=== PATIENT | male | born 1945 | race Caucasian/White ===

== ENCOUNTER → 2018-01-04 | Outpatient (CLI) | payer MEDICARE ==
[~2018-01-04] MED LIST: ASPI-891 PO; ATOR20TA65 PO; CETI-101 PO; DOXY100T2 PO; IPRA42SP NS; LISI-613 PO; [UNRECOGNIZED DRUG - OTHER] NASAL
== END | disposition home or self-care (01) ==
LOC: SHCH 13:10 → EDSTATUS 13:30
PROVIDERS: ATTEND Internal Medicine Cardiovascular Disease
DX: I42.9 Cardiomyopathy, unspecified (principal); I35.0 Nonrheumatic aortic (valve) stenosis; R00.2 Palpitations; Z95.0 Presence of cardiac pacemaker
CPT/HCPCS: 93306

== ENCOUNTER 2018-01-11 09:03 | Day surgery (SDC) | payer MEDICARE ==
[2018-01-09 10:32] VITALS: BP 127/76
[2018-01-09 10:36] LABS: BASOPHILS % (AUTO) 0.9 % (0.0-5.0); EOSINOPHILS % (AUTO) 3.3 % (0.0-8.0); HEMATOCRIT 45.6 % (42-54); LYMPHOCYTES % (AUTO) 31.3 % (21.0-51.0); MEAN CORPUSCULAR HEMOGLOBIN 35.1 pg (27.0-33.0); MEAN CORPUSCULAR HGB CONC 34.6 g/dL (32.0-36.0); MEAN CORPUSCULAR VOLUME 101.4 fL (79-99); MONOCYTES % (AUTO) 14.2 % (3.0-13.0); NEUTROPHILS % (AUTO) 50.3 % (40.0-77.0); NUCLEATED RED BLOOD CELLS 0.1 % (0.0-0.19); PLATELET COUNT (AUTO) 206 K/uL (130-400); RED CELL DISTRIBUTION WIDTH 13.5 % (11.0-15.5); WHITE BLOOD COUNT (AUTO) 5.2 K/uL (4.8-10.8)
[2018-01-09 10:50] LABS: CREATININE 1.4 mg/dL (0.5-1.5); POTASSIUM 5.4 mmol/L (3.5-5.1)
[2018-01-09 10:53] LABS: PARTIAL THROMBOPLASTIN TIME 25.6 SEC (26.3-35.5)
[2018-01-09 11:36] LABS: INR 0.98 (0.85-1.15); PROTHROMBIN TIME 10.3 SEC (9.6-11.6)
[2018-01-11] VITALS (10 sets, daily range): BP systolic 106–137; BP diastolic 63–85
[~2018-01-11] VITALS: Ht 172.7 cm; Wt 73.0 kg
[~2018-01-11 09:03] MED LIST changes: +BUPIVACAINE/PF 0.25% 30ML VIAL IJ ONE; +CEFAZOLIN 1GM / D5W 50ML 150 ML ONE; -DOXY100T2 PO; +LIDOCAINE HCL 1% MDV 50ML VIAL ONE; +SODIUM CHLORIDE 0.9% 1000ML 1,000 ML IV SCH; -[UNRECOGNIZED DRUG - OTHER] NASAL
[2018-01-11 09:28] LABS: CREATININE 1.4 mg/dL (0.5-1.5); POTASSIUM 4.7 mmol/L (3.5-5.1)
[2018-01-11] MEDS ORDERED: VANCOMYCIN 1GM+NS 250ML 500 ML IV ONE (09:41)
[2018-01-11] MEDS ORDERED: MEPERIDINE-PF 25 MG/ML SYG ONE ×3 (09:49→10:31)
[2018-01-11] MEDS ORDERED: MIDAZOLAM HCL 1 MG/ML 2ML VIAL ONE ×3 (09:49→10:31)
[2018-01-11] MEDS ORDERED: OCTYL 2-CYANOACRYLATE 1 EACH TP ONE (10:41)
[2018-01-11] MEDS ORDERED: DOXY100T2 PO (10:58)
[2018-01-11] MEDS ORDERED: ONDANSETRON HCL 4 MG/2 ML VIAL IV PRN (11:00)
[2018-01-11] MEDS ORDERED: ACETAMINOPHEN-CODEINE 300/30MG TAB PO PRN ×2 (11:00)
== END 2018-01-11 15:10 | disposition home or self-care (01) ==
LOC: DAH 09:03
PROVIDERS: ATTEND Internal Medicine Cardiovascular Disease
DX: I44.2 Atrioventricular block, complete (principal); Z95.0 Presence of cardiac pacemaker; Z98.890 Other specified postprocedural states; Z88.0 Allergy status to penicillin; Z68.24 Body mass index [BMI] 24.0-24.9, adult; M19.90 Unspecified osteoarthritis, unspecified site; I10 Essential (primary) hypertension; E78.5 Hyperlipidemia, unspecified; I49.5 Sick sinus syndrome; Z95.2 Presence of prosthetic heart valve; R00.1 Bradycardia, unspecified
CPT/HCPCS: 33228; 36415 ×2; 80048 ×2; 85025; 85610; 85730; 93005; A4606; C1785; J0690; J2175 ×3; J2250 ×3; J3370; J3490 ×2; 99152; 99153

== ENCOUNTER → 2018-03-08 | Outpatient (CLI) | payer MEDICARE ==
[~2018-03-08] MED LIST changes: -BUPIVACAINE/PF 0.25% 30ML VIAL IJ ONE; -CEFAZOLIN 1GM / D5W 50ML 150 ML ONE; +DOXY100T2 PO; -LIDOCAINE HCL 1% MDV 50ML VIAL ONE; -SODIUM CHLORIDE 0.9% 1000ML 1,000 ML IV SCH
== END | disposition home or self-care (01) ==
LOC: OIH 15:30
PROVIDERS: ATTEND Family Medicine
DX: M25.552 Pain in left hip (principal)
CPT/HCPCS: 73502

== ENCOUNTER → 2018-03-17 | Outpatient (CLI) | payer MEDICARE | END | disposition home or self-care (01) | LOC: OIH 12:38 | PROVIDERS: ATTEND Family Medicine | DX: M51.36 Other intervertebral disc degeneration, lumbar region (principal); M48.061 Spinal stenosis, lumbar region without neurogenic claudication; M25.78 Osteophyte, vertebrae | CPT/HCPCS: 72100 ==

== ENCOUNTER → 2020-04-23 | Outpatient (CLI) | payer MEDICARE ==
[~2020-04-23] MED LIST changes: -CETI-101 PO; +CETI-109 PO
== END | disposition home or self-care (01) ==
LOC: SHCH 13:52
PROVIDERS: ATTEND Internal Medicine Cardiovascular Disease
DX: I10 Essential (primary) hypertension (principal); R09.89 Other specified symptoms and signs involving the circulatory and respiratory systems
CPT/HCPCS: 93306; 93880

== ENCOUNTER → 2020-10-29 | Outpatient (CLI) | payer MEDICARE ==
[~2020-10-29] MED LIST changes: -CETI-109 PO; +CETI-89 PO; -LISI-613 PO; +LISI20TA24 PO
== END | disposition home or self-care (01) ==
LOC: SHCH 15:40
PROVIDERS: ATTEND Internal Medicine Cardiovascular Disease
DX: I08.0 Rheumatic disorders of both mitral and aortic valves (principal)
CPT/HCPCS: 93306; 93356

== ENCOUNTER 2020-12-08 08:32 | Day surgery (SDC) | payer MEDICARE ==
[2020-12-04 11:29] LABS: HEMATOCRIT 48.3 % (42-54); LYMPHOCYTES % (AUTO) 26.6 % (21.0-51.0); MEAN CORPUSCULAR HEMOGLOBIN 32.7 pg (27.0-33.0); MEAN CORPUSCULAR HGB CONC 33.5 g/dL (32.0-36.0); MEAN CORPUSCULAR VOLUME 97.6 fL (79-99); NEUTROPHILS % (AUTO) 54.9 % (40.0-77.0); PLATELET COUNT (AUTO) 223 K/uL (130-400); RED BLOOD CELL COUNT(AUTO) 4.95 MIL/uL (4.50-6.20); RED CELL DISTRIBUTION WIDTH 12.3 % (11.0-15.5); WHITE BLOOD COUNT (AUTO) 5.9 K/uL (4.8-10.8)
[2020-12-04 11:41] LABS: CREATININE 1.2 mg/dL (0.5-1.5); POTASSIUM 4.5 mmol/L (3.5-5.1)
[2020-12-04 11:45] LABS: INR 1.05 (0.85-1.15); PROTHROMBIN TIME 11.4 SEC (9.6-11.6)
[2020-12-04 11:46] LABS: PARTIAL THROMBOPLASTIN TIME 27.4 SEC (26.3-35.5)
[2020-12-05 12:01] VITALS: BP 149/100
[2020-12-08] VITALS (10 sets, daily range): BP systolic 107–146; BP diastolic 61–84
[~2020-12-08] VITALS: Ht 170.2 cm; Wt 73.5 kg
[~2020-12-08 08:32] MED LIST changes: +AMLO-257 PO; -CETI-89 PO; -DOXY100T2 PO; -IPRA42SP NS; -LISI20TA24 PO; +MULT-1203 PO; +PHARMACY COMMUNICATION MISC SCH; +SODIUM CHLORIDE 0.9% 1000ML 1,000 ML IV SCH
[2020-12-08] MEDS ORDERED: IODIXANOL 320 MG/ML 100 ML VIAL ONE (10:03)
[2020-12-08] MEDS ORDERED: BUPIVACAINE/PF 0.25% 30ML VIAL IJ ONE (10:03)
[2020-12-08] MEDS ORDERED: MIDAZOLAM HCL 1 MG/ML 2ML VIAL ONE ×3 (10:03→11:15)
[2020-12-08] MEDS ORDERED: MEPERIDINE-PF 25 MG/ML SYG ONE ×3 (10:03→11:15)
[2020-12-08] MEDS ORDERED: VANCOMYCIN 1GM+NS 250ML 500 ML IV ONE (10:04)
[2020-12-08] MEDS ORDERED: LIDOCAINE HCL 1% MDV 50ML VIAL ONE (10:04)
[2020-12-08] MEDS ORDERED: ACETAMINOPHEN-CODEINE 300/30MG TAB PO PRN ×2 (12:00)
[2020-12-08] MEDS ORDERED: ONDANSETRON HCL 4 MG/2 ML VIAL IV PRN (12:00)
== END 2020-12-08 18:05 | disposition home or self-care (01) ==
LOC: DAH 08:32
PROVIDERS: ATTEND Internal Medicine Cardiovascular Disease
DX: I42.0 Dilated cardiomyopathy (principal); I44.30 Unspecified atrioventricular block; E78.5 Hyperlipidemia, unspecified; Z79.01 Long term (current) use of anticoagulants; Z88.0 Allergy status to penicillin; Z95.2 Presence of prosthetic heart valve; Z95.0 Presence of cardiac pacemaker; Z72.89 Other problems related to lifestyle; Z79.82 Long term (current) use of aspirin; Z79.899 Other long term (current) drug therapy; Z98.890 Other specified postprocedural states
CPT/HCPCS: 33225; 33229; 36415; 71045; 80048; 85025; 85610; 85730; 93005; A4215; A4216; A4221; A4222; A4223 ×3; A4606; A4663; C1769 ×2; C1894; C1900; C2621; J2175 ×3; J2250 ×3; J3370; J3490 ×2; J7030; Q9967; 99156; 99157

== ENCOUNTER → 2021-12-07 | Outpatient (CLI) | payer MEDICARE ==
[~2021-12-07] MED LIST changes: -PHARMACY COMMUNICATION MISC SCH; -SODIUM CHLORIDE 0.9% 1000ML 1,000 ML IV SCH
== END | disposition home or self-care (01) ==
LOC: SHCH 15:41
PROVIDERS: ATTEND Internal Medicine Cardiovascular Disease
DX: I35.2 Nonrheumatic aortic (valve) stenosis with insufficiency (principal); I51.7 Cardiomegaly; E78.5 Hyperlipidemia, unspecified; Z95.2 Presence of prosthetic heart valve
CPT/HCPCS: 93306

== ENCOUNTER 2021-12-30 08:25 | Day surgery (SDC) | payer MEDICARE ==
[2021-12-29 14:14] LABS: BASOPHILS % (AUTO) 0.6 % (0.0-5.0); EOSINOPHILS % (AUTO) 2.2 % (0.0-8.0); HEMATOCRIT 46.7 % (42-54); LYMPHOCYTES % (AUTO) 27.8 % (21.0-51.0); MEAN CORPUSCULAR HEMOGLOBIN 33.2 pg (27.0-33.0); MEAN CORPUSCULAR VOLUME 100.6 fL (79-99); MONOCYTES % (AUTO) 11.9 % (3.0-13.0); NEUTROPHILS % (AUTO) 57.1 % (40.0-77.0); PLATELET COUNT (AUTO) 183 K/uL (130-400); RED BLOOD CELL COUNT(AUTO) 4.64 MIL/uL (4.50-6.20); RED CELL DISTRIBUTION WIDTH 12.9 % (11.0-15.5); WHITE BLOOD COUNT (AUTO) 6.7 K/uL (4.8-10.8)
[2021-12-29 14:18] LABS: APPEARANCE,URINE Clear (CLEAR); BILIRUBIN,URINE Negative (NEGATIVE); COLOR,URINE Dark Yellow (YELLOW); GLUCOSE, URINE (UA) Negative (NEGATIVE); KETONES,URINE 15 mg/dL (NEGATIVE); LEUKOCYTE ESTERASE ,URINE Trace (NEGATIVE); NITRATE,URINE Negative (NEGATIVE); OCCULT BLOOD,URINE Small (NEGATIVE); PH,URINE 5.5 (5.0-8.0); PROTEIN,URINE POS 1+ mg/dL (NEGATIVE); UROBILINOGEN,URINE 0.2 mg/dL (0.2-1.0)
[2021-12-29 14:28] LABS: PROTHROMBIN TIME 10.9 SEC (9.6-11.6)
[2021-12-29 14:30] LABS: PARTIAL THROMBOPLASTIN TIME 26.6 SEC (26.3-35.5)
[2021-12-29 14:44] LABS: CREATININE 1.2 mg/dL (0.5-1.5); POTASSIUM 4.6 mmol/L (3.5-5.1)
[2021-12-29 14:46] LABS: BACTERIA,URINE Rare /HPF (None Seen); MUCUS,URINE Few LPF (None Seen); SQUAMOUS EPITHELIAL CELL,UR Rare /HPF (0-2); WBC,URINE 0-1 /HPF (0-1)
[2021-12-29 14:48] LABS: B-TYPE NATRIURETIC PEPTIDE 100 pg/mL (0-100)
[2021-12-29 15:29] VITALS: BP 167/90
[2021-12-30] VITALS (10 sets, daily range): BP systolic 106–148; BP diastolic 64–89
[~2021-12-30] VITALS: Ht 170.2 cm; Wt 72.8 kg
[~2021-12-30 08:25] MED LIST changes: +0.9% NACL 500ML IV.SOLN 500 ML IV SCH; +0.9%NACL 1000ML 1,000 ML IV ONE; +ATOR10 PO; -ATOR20TA65 PO; +CETI10TA57 PO; +IPRA3S NASAL; -MULT-1203 PO; +MULT-1367 PO
[2021-12-30] MEDS ORDERED: HEPARIN 10,000 UNIT/10ML (1,000 UNIT/ML) VIAL ONE (12:30)
[2021-12-30] MEDS ORDERED: MEPERIDINE-PF 25 MG/ML SYG ONE ×3 (12:30→14:12)
[2021-12-30] MEDS ORDERED: BIVALIRUDIN 250 MG/VIAL IV ONE (12:30)
[2021-12-30] MEDS ORDERED: MIDAZOLAM HCL 1 MG/ML 2ML VIAL ONE ×3 (12:30→14:11)
[2021-12-30] MEDS ORDERED: NITROGLYCERIN 50MG VIAL ONE (12:30)
[2021-12-30] MEDS ORDERED: IOHEXOL-350 50ML VIAL IV ONE (12:31)
[2021-12-30] MEDS ORDERED: IOHEXOL 350 MG/ML 100ML INFUS..BTL IV ONE (12:31)
[2021-12-30] MEDS ORDERED: LIDOCAINE HCL 400MG/20ML VIAL ONE (12:31)
[2021-12-30] MEDS ORDERED: 0.9%NACL 1000ML 1,000 ML IV SCH (15:30)
== END 2021-12-30 19:00 | disposition home or self-care (01) ==
LOC: DAH 08:25
PROVIDERS: ATTEND Internal Medicine Cardiovascular Disease
DX: I35.0 Nonrheumatic aortic (valve) stenosis (principal); I25.10 Atherosclerotic heart disease of native coronary artery without angina pectoris; I44.2 Atrioventricular block, complete; I50.32 Chronic diastolic (congestive) heart failure; Z95.3 Presence of xenogenic heart valve; Z79.899 Other long term (current) drug therapy; Z79.01 Long term (current) use of anticoagulants; Z79.82 Long term (current) use of aspirin; Z98.890 Other specified postprocedural states; Z88.0 Allergy status to penicillin
CPT/HCPCS: 36415; 71045; 80048; 81001; 83880; 85025; 85610; 85730; 93005; 93460; 93567; A4215; A4216; A4221; A4222; A4223 ×3; A4606; A4663; C1760 ×2; C1769 ×5; C1887 ×2; C1893; C1894 ×2; J1644 ×3; J2175 ×3; J2250 ×3; J3490 ×2; J7030; Q9965; Q9967 ×2; 99156; 99157; J0583

== ENCOUNTER → 2022-01-14 | Outpatient (CLI) | payer MEDICARE ==
[~2022-01-14] MED LIST changes: -0.9% NACL 500ML IV.SOLN 500 ML IV SCH; -0.9%NACL 1000ML 1,000 ML IV ONE
[2022-01-14 12:27] LABS: CREATININE 1.3 mg/dL (0.5-1.5); POTASSIUM 4.1 mmol/L (3.5-5.1)
== END | disposition home or self-care (01) ==
LOC: LAB 11:02
PROVIDERS: ATTEND Physician Assistant
DX: I10 Essential (primary) hypertension (principal)
CPT/HCPCS: 36415; 80048

== ENCOUNTER → 2022-02-05 | Outpatient (CLI) | payer MEDICARE ==
[~2022-02-05] MED LIST changes: +IOHEXOL 350 MG/ML 100ML INFUS..BTL IV ONE; +METOPROLOL TARTRATE 1 MG/ML 5ML VIAL IV ONE
== END | disposition home or self-care (01) ==
LOC: RAH 02-02 10:44
PROVIDERS: ATTEND Internal Medicine Cardiovascular Disease
DX: I35.0 Nonrheumatic aortic (valve) stenosis (principal); I51.7 Cardiomegaly; I25.10 Atherosclerotic heart disease of native coronary artery without angina pectoris; I70.8 Atherosclerosis of other arteries; K44.9 Diaphragmatic hernia without obstruction or gangrene; N28.1 Cyst of kidney, acquired; K31.89 Other diseases of stomach and duodenum; K57.90 Diverticulosis of intestine, part unspecified, without perforation or abscess without bleeding; M47.815 Spondylosis without myelopathy or radiculopathy, thoracolumbar region; Z95.0 Presence of cardiac pacemaker
CPT/HCPCS: 74174; 75574; J3490; Q9967

== ENCOUNTER → 2022-06-01 | Outpatient (CLI) | payer MEDICARE ==
[~2022-06-01] MED LIST changes: -IOHEXOL 350 MG/ML 100ML INFUS..BTL IV ONE; -METOPROLOL TARTRATE 1 MG/ML 5ML VIAL IV ONE
== END | disposition home or self-care (01) ==
LOC: OIH 09:49
PROVIDERS: ATTEND Internal Medicine Cardiovascular Disease
DX: I51.7 Cardiomegaly (principal); I35.0 Nonrheumatic aortic (valve) stenosis; E78.5 Hyperlipidemia, unspecified; Z95.2 Presence of prosthetic heart valve
CPT/HCPCS: 93306

== ENCOUNTER → 2024-12-03 | Outpatient (CLI) | payer MEDICARE ==
--- NOTE | 2024-12-03 15:09 | HMCIMG ---
CHEST 2VWS HISTORY: Cough COMPARISON: 12/29/2021 FINDINGS: Frontal and lateral projections of the chest were obtained. There are prominent interstitial markings with possible superimposed infiltrates. The heart is not enlarged. Poststernotomy changes are seen. Pacemaker is seen entering from the left. No evidence of aortic calcification is seen. Degenerative changes are seen of the thoracolumbar spine. IMPRESSION: 1. There are prominent interstitial markings.
== END | disposition home or self-care (01) ==
LOC: RAH 13:34
PROVIDERS: ATTEND Family Medicine
DX: J84.89 Other specified interstitial pulmonary diseases (principal); R05.1 Acute cough; M47.815 Spondylosis without myelopathy or radiculopathy, thoracolumbar region
CPT/HCPCS: 71046

== ENCOUNTER → 2024-12-17 | Outpatient (CLI) | payer MEDICARE ==
--- NOTE | 2024-12-17 16:32 | HMCIMG ---
CT CHEST HIGH RESOLUTION (WO) HISTORY: Abnormal findings COMPARISON: None TECHNIQUE: Multiple sequential axial images of the chest were obtained from the thoracic inlet through upper abdomen. Patient was not given contrast through intravenous route. FINDINGS: Minimal right lower lobe pulmonary infiltrates and linear atelectasis changes are seen. There are mild interstitial fibrosis or bronchiectasis. Coronary artery calcifications are seen. No pleural effusion or pericardial effusion is seen. There is no evidence of pneumothorax. There are normal size mediastinal and hilar lymph nodes. The heart is not enlarged. Degenerative changes of the thoracolumbar spine are present. There is no evidence of adrenal nodule. IMPRESSION: 1. Minimal right lower lobe pulmonary infiltrates and linear atelectasis changes are seen. There are mild interstitial fibrosis or bronchiectasis. Coronary artery calcifications are seen. CT was performed with one or more following dose reduction techniques: automated exposure control, adjustment of the mA and kv according to patient's size, or use of a iterative reconstruction technique.
== END | disposition home or self-care (01) ==
LOC: RAH 14:18
PROVIDERS: ATTEND Family Medicine
DX: J98.11 Atelectasis (principal); R93.89 Abnormal findings on diagnostic imaging of other specified body structures; I25.10 Atherosclerotic heart disease of native coronary artery without angina pectoris; M47.815 Spondylosis without myelopathy or radiculopathy, thoracolumbar region
CPT/HCPCS: 71250

== ENCOUNTER → 2025-06-03 | Outpatient (CLI) | payer MEDICARE ==
--- NOTE | 2025-06-04 12:41 | HMCIMG ---
EXAM: CR Right Shoulder, 3 views. CLINICAL HISTORY: Pain. COMPARISON: None provided. FINDINGS: No acute fracture or aggressive appearing osseous lesion. Unremarkable joint spaces. The soft tissues are unremarkable. IMPRESSION: 1. No acute bony changes. /[place]
--- NOTE | 2025-06-04 12:41 | HMCIMG ---
EXAM: CR Right Humerus, 3 views. CLINICAL HISTORY: Pain. COMPARISON: None provided. FINDINGS: No acute fracture or aggressive appearing osseous lesion. Unremarkable joint spaces. The soft tissues are unremarkable. IMPRESSION: 1. No acute bony changes. /[place]
== END | disposition home or self-care (01) ==
LOC: RAH 14:50
PROVIDERS: ATTEND Family Medicine
DX: M79.601 Pain in right arm (principal)
CPT/HCPCS: 73030; 73060